=== PATIENT | female | born 1975 | race Caucasian/White ===

== ENCOUNTER 2018-10-26 07:17 | Emergency (ER) | payer OTHER, SELFPAY ==
[2018-10-26] MEDS ORDERED: diphenhydrAMINE 50 MG/ML VIAL ONE (08:40)
[2018-10-26] MEDS ORDERED: methylPREDNISolone Sod Succ/PF 125 MG/2 ML VIAL ONE (08:40)
[2018-10-26 08:49] LABS: #Eosinphils 0.2 thou/uL (0.0-0.7); #Lymphocytes 1.8 thou/uL (1.20-3.40); #Monocytes 0.9 thou/uL (0.11-0.59); #Neutrophils 5.9 thou/uL (1.40-6.50); %Basophils 0.5 % (0.0-1.0); %Eosinophils 1.9 % (0.0-10.0); %Lymphocytes 20.9 % (21.0-51.0); %Monocytes 9.8 % (0.0-10.0); %Neutrophils 66.9 % (42.0-75.0); Mean Corpuscular HGB CONC 33.7 g/dL (32.0-36.0); Mean Corpuscular Hemoglobin 31.3 pg (27.0-31.0); Mean Platelet Volume 7.5 fL (7.4-10.4); Platelet Count 299 thou/uL (130-400); RBC Distribution Width 12.6 % (11.5-14.5); Red Blood Cell (RBC) Count 4.48 mill/uL (4.20-5.40); White Blood Cell (WBC) Count 8.8 thou/uL (4.8-10.8)
[2018-10-26 09:02] LABS: BHCG - Serum Negative (NEGATIVE); Pregs Control Background? CLEAR/WHITE (CLR/WHITE); Pregs Control Bar Appear? YES (CONTROL BAR)
--- NOTE | 2018-10-26 09:36 | CT ---
CT FACE WITH CONTRAST: HISTORY: Upper lip swelling. COMPARISON: None. FINDINGS: Visualized brain parenchyma is unremarkable Bilateral ocular lenses are appropriately located. Both globes are intact. Retrobulbar fat is preserved. Symmetric attenuation of the optic nerves and ocular rectus muscles. Coronal images demonstrate patent bilateral osteomeatal complexes. The osseo us margins of the sinuses and orbits are intact. Intact maxilla and mandible. No fractures. Intact zygomatic arches. The visualized upper cervical spine is unremarkable. Symmetric attenuation of the parotid and submandibular glands. Suprahyoid larynx is unremarkable. There is swelling overlying the soft tissues at the level of the maxilla, left greater than right. There is evidence o f a periapical lucency, along with erosion, of the left aspect of the maxilla, at the level of the 12th tooth. There does not appear to be a drainable abscess. Adequate aeration of the visualized sinuses and mastoid air cells. IMPRESSION: Periapical abscess with destruction of the maxilla at the level the 12th tooth. There is swelling in volving the soft tissues overlying the maxilla. A soft tissue abscess is not appreciated at this time. Transcribed Date/Time: 10/26/2018 9:43 AM
[2018-10-26] MEDS ORDERED: Ketorolac Tromethamine 30 MG/ML VIAL ONE (10:46)
== END 2018-10-26 10:56 | disposition home or self-care (01) ==
LOC: ERS 07:17
DX: K04.7 Periapical abscess without sinus (principal); F17.210 Nicotine dependence, cigarettes, uncomplicated
CPT/HCPCS: 70487; 82374; 84703; 85025; 96374; 96375; J1200; J1885; J2930